=== PATIENT | female | born 1995 | race Caucasian/White ===

== ENCOUNTER → 2017-12-23 | Outpatient (CLI) | payer OTHER ==
[2017-12-23 11:06] LABS: HEMOGLOBIN 13.5 g/dl (12.0-15.5); MEAN CORPUSCULAR HGB CONC 33.8 g/dl (32.0-36.5); MEAN CORPUSCULAR VOLUME 88.9 fl (80.0-96.0); PLATELET COUNT, AUTOMATED 207 10^3/uL (150-450); RED CELL DISTRIBUTION WIDTH 12.8 % (11.5-14.5); WHITE BLOOD COUNT 7.1 10^3/uL (4.0-10.0)
[2017-12-23 11:31] LABS: ALBUMIN 3.3 GM/DL (3.2-5.2); ALBUMIN/GLOBULIN RATIO 0.94 (1.00-1.93); ALKALINE PHOSPHATASE 61 U/L (45-117); ALT/SGPT 27 U/L (12-78); ANION GAP 7 MEQ/L (8-16); AST/SGOT 17 U/L (7-37); BILIRUBIN,TOTAL 0.3 MG/DL (0.2-1.0); BLOOD UREA NITROGEN 13 MG/DL (7-18); CALCIUM LEVEL 8.4 MG/DL (8.5-10.1); CARBON DIOXIDE LEVEL 25 MEQ/L (21-32); CHLORIDE LEVEL 111 MEQ/L (98-107); CHOLESTEROL LEVEL 172 MG/DL (<200); CHOLESTEROL RISK RATIO 2.965 (<5); CREATININE FOR GFR 0.83 MG/DL (0.55-1.30); FERRITIN 81 NG/ML (8-252); GLUCOSE, FASTING 84 MG/DL (70-100); HDL CHOLESTEROL 58 MG/DL (>40); IRON (FE) 72 UG/DL (50-170); LDL CHOLESTEROL 88.4 MG/DL (<100); NON-HDL-C 114 MG/DL; PERCENT SATURATION 21.2 % (13.2-45.0); POTASSIUM SERUM 4.3 MEQ/L (3.5-5.1); SODIUM LEVEL 143 MEQ/L (136-145); TOTAL IRON BINDING CAPACITY 339 UG/DL (250-450); TOTAL PROTEIN 6.8 GM/DL (6.4-8.2); TRIGLYCERIDES LEVEL 128 MG/DL (<150)
[2017-12-23 11:33] LABS: ESTIMATED AVERAGE GLUCOSE 88 MG/DL (60-110); HEMOGLOBIN A1c 4.7 %
[2017-12-24 12:48] LABS: TOTAL 25(OH) VITAMIN D 42.8 NG/ML (30.0-100.0)
== END ==
LOC: M LAB 10:30
DX: D64.9 Anemia, unspecified (principal); E03.9 Hypothyroidism, unspecified; R53.83 Other fatigue
CPT/HCPCS: 83550

== ENCOUNTER → 2018-01-15 | Outpatient (REF) | payer OTHER ==
[2018-01-15 18:45] LABS: RHEUMATOID FACTOR QUANT < 10.0 IU/ML (<15.0)
[2018-01-15 18:45] LABS: C REACTIVE PROTEIN QUANTITATIV 2.62 MG/DL (0.00-0.30)
[2018-01-15 19:09] LABS: BASO % 0.5 % (0.0-1.0); EOS # 0.2 10^3/uL (0.0-0.50); EOS % 2.6 % (0.0-3.0); HEMATOCRIT 39.1 % (36.0-47.0); HEMOGLOBIN 13.4 g/dl (12.0-15.5); IMMATURE GRANULOCYTE % 0.2 % (0-3.0); LYMPH # 3.2 10^3/uL (1.5-6.5); LYMPH % 37.7 % (24.0-44.0); MEAN CORPUSCULAR HEMOGLOBIN 29.9 pg (27.0-33.0); MEAN CORPUSCULAR HGB CONC 34.3 g/dl (32.0-36.5); MEAN CORPUSCULAR VOLUME 87.3 fl (80.0-96.0); MONO # 0.6 10^3/uL (0.0-0.8); MONO % 6.5 % (0.0-5.0); NEUTROPHILS # 4.4 10^3/uL (1.8-7.7); NEUTROPHILS % 52.5 % (36.0-66.0); PLATELET COUNT, AUTOMATED 239 10^3/uL (150-450); RED BLOOD COUNT 4.48 10^6/uL (4.00-5.40); RED CELL DISTRIBUTION WIDTH 12.4 % (11.5-14.5); WHITE BLOOD COUNT 8.4 10^3/uL (4.0-10.0)
[2018-01-15 20:19] LABS: ERYTHROCYTE SEDIMENTATION RATE 18 mm/hr (0-20)
[2018-01-17 14:17] LABS: Lyme Disease IgG/IgM Antibodie <0.91 ISR (0.00-0.90); Lyme Disease IgM Ab Quantitati <0.80 index (0.00-0.79)
== END ==
LOC: M LABDRAW1 17:27
DX: M22.2X2 Patellofemoral disorders, left knee (principal)

== ENCOUNTER → 2018-01-30 | Outpatient (REF) | payer OTHER ==
[2018-01-30 18:36] LABS: C REACTIVE PROTEIN QUANTITATIV 0.82 MG/DL (0.00-0.30)
== END ==
LOC: M LABDRAW1 17:24
DX: M22.2X2 Patellofemoral disorders, left knee (principal)

== ENCOUNTER → 2018-06-06 | Outpatient (REF) | payer OTHER ==
[2018-06-06 11:15] LABS: BLOOD UREA NITROGEN 13 MG/DL (7-18); CALCIUM LEVEL 8.3 MG/DL (8.5-10.1); CARBON DIOXIDE LEVEL 26 MEQ/L (21-32); CHLORIDE LEVEL 105 MEQ/L (98-107); CREATININE FOR GFR 0.74 MG/DL (0.55-1.30); GLOMERULAR FILTRATION RATE > 60.0 (>60); GLUCOSE, FASTING 81 MG/DL (70-100); POTASSIUM SERUM 4.3 MEQ/L (3.5-5.1); SODIUM LEVEL 140 MEQ/L (136-145)
[2018-06-06 11:27] LABS: TOTAL 25(OH) VITAMIN D 53.5 NG/ML (30.0-100.0)
== END ==
LOC: M LABDRAW1 09:26
PROVIDERS: ATTEND Internal Medicine Endocrinology, Diabetes & Metabolism
DX: E55.9 Vitamin D deficiency, unspecified (principal); E28.2 Polycystic ovarian syndrome

== ENCOUNTER → 2018-07-29 | Outpatient (REF) | payer OTHER ==
[2018-07-29 21:33] LABS: AMORPHOUS SEDIMENT SMALL (NEGATIVE); APPEARANCE, URINE HAZY (CLEAR); BACTERIA, URINE AUTO 1+ (NEGATIVE); BILIRUBIN, URINE AUTO NEGATIVE (NEGATIVE); BLOOD, URINE BLOOD 1+ (NEGATIVE); COLOR, URINE YELLOW (YELLOW); GLUCOSE, URINE (UA) AUTO NEGATIVE (NEGATIVE); KETONE, URINE AUTO TRACE mg/dL (NEGATIVE); LEUKOCYTE ESTERASE, URINE AUTO 3+ (NEGATIVE); MUCUS, URINE SMALL (NEGATIVE); NITRITE, URINE AUTO NEGATIVE (NEGATIVE); PROTEIN, URINE AUTO 1+ mg/dL (NEGATIVE); RBC, URINE AUTO 6 /HPF (0-3); SPECIFIC GRAVITY URINE AUTO 1.024 (1.002-1.035); SQUAMOUS EPITHELIAL CELL UR AU 3 /HPF (0-6); UROBILINOGEN, URINE AUTO 0.2 mg/dL (0.0-2.0); WBC, URINE AUTO 28 /HPF (0-3)
== END ==
LOC: M LAB REF 14:31
PROVIDERS: ATTEND Physician Assistant Medical
DX: N39.0 Urinary tract infection, site not specified (principal)

== ENCOUNTER → 2018-12-27 | Outpatient (REF) | payer BC, OTHER ==
[2018-12-27 12:25] LABS: BLOOD UREA NITROGEN 11 MG/DL (7-18); CALCIUM LEVEL 8.6 MG/DL (8.5-10.1); CARBON DIOXIDE LEVEL 29 MEQ/L (21-32); CHLORIDE LEVEL 106 MEQ/L (98-107); CHOLESTEROL LEVEL 189 MG/DL (<200); CREATININE FOR GFR 0.73 MG/DL (0.55-1.30); GLOMERULAR FILTRATION RATE > 60.0 (>60); GLUCOSE, FASTING 81 MG/DL (70-100); HDL CHOLESTEROL 63 MG/DL (>40); POTASSIUM SERUM 4.2 MEQ/L (3.5-5.1); SODIUM LEVEL 142 MEQ/L (136-145); TRIGLYCERIDES LEVEL 100 MG/DL (<150)
[2018-12-27 12:26] LABS: LDL CHOLESTEROL 106 MG/DL (<100); NON-HDL-C 126 MG/DL
[2018-12-27 12:59] LABS: TESTOSTERONE 34 NG/DL (14-76)
[2018-12-27 13:18] LABS: TOTAL 25(OH) VITAMIN D 39.5 NG/ML (30.0-100.0)
== END ==
LOC: M LABDRAW1 09:10
PROVIDERS: ATTEND Nurse Practitioner Family
DX: E28.2 Polycystic ovarian syndrome (principal); E55.9 Vitamin D deficiency, unspecified

== ENCOUNTER → 2020-06-21 | Outpatient (CLI) | payer BC ==
[2020-06-21 11:53] LABS: BASO % 0.5 % (0.0-1.0); EOS # 0.2 10^3/uL (0.0-0.5); EOS % 2.3 % (0.0-3.0); HEMATOCRIT 43.9 % (36.0-47.0); HEMOGLOBIN 14.2 g/dl (12.0-15.5); LYMPH # 3.3 10^3/uL (1.5-5.0); LYMPH % 41.8 % (24.0-44.0); MEAN CORPUSCULAR HEMOGLOBIN 29.6 pg (27.0-33.0); MEAN CORPUSCULAR HGB CONC 32.3 g/dl (32.0-36.5); MEAN CORPUSCULAR VOLUME 91.6 fl (80.0-96.0); MONO # 0.6 10^3/uL (0.0-0.8); NEUTROPHILS # 3.8 10^3/uL (1.5-8.5); NEUTROPHILS % 48.1 % (36.0-66.0); PLATELET COUNT, AUTOMATED 258 10^3/uL (150-450); RED BLOOD COUNT 4.79 10^6/uL (4.00-5.40); WHITE BLOOD COUNT 7.9 10^3/uL (4.0-10.0)
[2020-06-21 13:02] LABS: ALT/SGPT 24 U/L (12-78); BILIRUBIN,TOTAL 0.4 MG/DL (0.2-1.0); BLOOD UREA NITROGEN 12 MG/DL (7-18); CARBON DIOXIDE LEVEL 27 MEQ/L (21-32); CHLORIDE LEVEL 106 MEQ/L (98-107); GLOMERULAR FILTRATION RATE > 60.0 (>60); GLUCOSE, FASTING 76 MG/DL (70-100); POTASSIUM SERUM 4.5 MEQ/L (3.5-5.1); SODIUM LEVEL 140 MEQ/L (136-145); TRIGLYCERIDES LEVEL 162 MG/DL (<150)
[2020-06-21 13:03] LABS: ALBUMIN 3.6 GM/DL (3.2-5.2); CHOLESTEROL LEVEL 202 MG/DL (<200); CHOLESTEROL RISK RATIO 3.311 (<5); FREE T4 1.04 NG/DL (0.76-1.46); HDL CHOLESTEROL 61 MG/DL (>40); LDL CHOLESTEROL 109 MG/DL (<100); NON-HDL-C 141 MG/DL; TOTAL 25(OH) VITAMIN D 57.8 NG/ML (30.0-100.0)
[2020-06-21 16:10] LABS: HEMOGLOBIN A1c 4.8 %
== END ==
LOC: M PLALAB 09:28
PROVIDERS: ATTEND Physician Assistant
DX: Z13.29 Encounter for screening for other suspected endocrine disorder (principal); Z13.220 Encounter for screening for lipoid disorders

== ENCOUNTER → 2020-12-07 | Outpatient (CLI) | payer OTHER ==
--- NOTE | 2020-12-07 19:23 | REP ---
INDICATION: LUMBAGO WITH SCIATICA, RIGHT SIDE COMPARISON: None. TECHNIQUE: AP and lateral views of the lumbosacral spine FINDINGS: AP view suggests very subtle levoconvex scoliosis through the lumbar spine. Alignment and lordosis otherwise maintained and normal. No acute fracture/compression injury or subluxation. No obvious degenerative changes. Evaluation of the L4-5 and L5-S1 levels is somewhat limited due to overlying soft tissue opacity. IMPRESSION: 1. Very subtle levoconvex scoliosis. <Electronically signed by Carlito Wright > 12/07/20 1549
--- NOTE | 2020-12-07 19:24 | REP ---
INDICATION: LUMBAGO WITH SCIATICA, RIGHT SIDE. COMPARISON: None. TECHNIQUE: AP, lateral, swimmer's views of the cervical spine. FINDINGS: Very subtle reversal of normal lordosis is nonspecific. Alignment is otherwise maintained. No acute fracture/compression injury or subluxation. No significant degenerative changes are appreciated. IMPRESSION: Essentially normal cervical spine radiographs. <Electronically signed by Carlito Wright > 12/07/201919
--- NOTE | 2020-12-07 20:29 | REP ---
INDICATION: LUMBAGO WITH SCIATICA, RIGHT SIDE COMPARISON: None. TECHNIQUE: AP and lateral views of the thoracic spine. FINDINGS: Alignment and kyphosis is maintained. Vertebral bodies intact. No acute fracture / compression injury or subluxation. No degenerative changes. Paravertebral soft tissues are normal. IMPRESSION: Normal thoracic spine series. <Electronically signed by Carlito Wright > 12/07/202025
== END ==
LOC: M LAB 18:39
PROVIDERS: ATTEND Chiropractor
DX: M54.41 Lumbago with sciatica, right side (principal); M99.03 Segmental and somatic dysfunction of lumbar region; M54.13 Radiculopathy, cervicothoracic region; M99.01 Segmental and somatic dysfunction of cervical region; M41.26 Other idiopathic scoliosis, lumbar region

== ENCOUNTER → 2021-01-11 | Outpatient (CLI) | payer OTHER | LOC: M PLALAB 08:26 | PROVIDERS: ATTEND Nurse Practitioner Family | DX: E28.2 Polycystic ovarian syndrome (principal) ==

== ENCOUNTER → 2021-01-11 | Outpatient (CLI) | payer OTHER ==
[2021-01-11 12:11] LABS: BASO # 0.1 10^3/uL (0.0-0.2); BASO % 0.7 % (0.0-1.0); EOS # 0.2 10^3/uL (0.0-0.5); EOS % 2.5 % (0.0-3.0); HEMATOCRIT 40.4 % (36.0-47.0); HEMOGLOBIN 13.4 g/dl (12.0-15.5); LYMPH % 42.1 % (24.0-44.0); MEAN CORPUSCULAR HEMOGLOBIN 30.1 pg (27.0-33.0); MEAN CORPUSCULAR HGB CONC 33.2 g/dl (32.0-36.5); MEAN CORPUSCULAR VOLUME 90.8 fl (80.0-96.0); MONO # 0.5 10^3/uL (0.0-0.8); MONO % 6.9 % (2.0-8.0); NEUTROPHILS # 3.4 10^3/uL (1.5-8.5); NEUTROPHILS % 47.5 % (36.0-66.0); PLATELET COUNT, AUTOMATED 217 10^3/uL (150-450); RED BLOOD COUNT 4.45 10^6/uL (4.00-5.40); WHITE BLOOD COUNT 7.2 10^3/uL (4.0-10.0)
[2021-01-11 12:51] LABS: ALBUMIN 3.4 GM/DL (3.2-5.2); ALT/SGPT 21 U/L (12-78); BILIRUBIN,TOTAL 0.4 MG/DL (0.2-1.0); BLOOD UREA NITROGEN 12 MG/DL (7-18); CALCIUM LEVEL 8.5 MG/DL (8.5-10.1); CARBON DIOXIDE LEVEL 29 MEQ/L (21-32); CHLORIDE LEVEL 107 MEQ/L (98-107); CHOLESTEROL LEVEL 192 MG/DL (<200); CHOLESTEROL RISK RATIO 2.823 (<5); CREATININE FOR GFR 0.75 MG/DL (0.55-1.30); GLOMERULAR FILTRATION RATE > 60.0 (>60); GLUCOSE, FASTING 81 MG/DL (70-100); HDL CHOLESTEROL 68 MG/DL (>40); LDL CHOLESTEROL 97 MG/DL (<100); NON-HDL-C 124 MG/DL; POTASSIUM SERUM 4.4 MEQ/L (3.5-5.1); SODIUM LEVEL 140 MEQ/L (136-145); TOTAL PROTEIN 6.7 GM/DL (6.4-8.2); TRIGLYCERIDES LEVEL 137 MG/DL (<150)
== END ==
LOC: M PLALAB 08:27
PROVIDERS: ATTEND Family Medicine
DX: I10 Essential (primary) hypertension (principal); E28.2 Polycystic ovarian syndrome

== ENCOUNTER → 2021-07-04 | Outpatient (CLI) | payer OTHER ==
[2021-07-04 17:41] LABS: BLOOD UREA NITROGEN 15 MG/DL (7-18); CARBON DIOXIDE LEVEL 29 MEQ/L (21-32); CHLORIDE LEVEL 106 MEQ/L (98-107); CREATININE FOR GFR 0.82 MG/DL (0.55-1.30); GLOMERULAR FILTRATION RATE > 60.0 (>60); GLUCOSE, FASTING 102 MG/DL (70-100); POTASSIUM SERUM 4.3 MEQ/L (3.5-5.1); SODIUM LEVEL 140 MEQ/L (136-145)
[2021-07-04 17:51] LABS: TOTAL 25(OH) VITAMIN D 59.7 NG/ML (30.0-100.0)
== END ==
LOC: M PLALAB 15:07
PROVIDERS: ATTEND Nurse Practitioner Family
DX: E55.9 Vitamin D deficiency, unspecified (principal)

== ENCOUNTER → 2021-07-04 | Outpatient (CLI) | payer OTHER ==
[2021-07-04 17:30] LABS: HEMOGLOBIN A1c 4.9 %
[2021-07-04 17:52] LABS: ALBUMIN 3.3 GM/DL (3.2-5.2); ALT/SGPT 23 U/L (12-78); BILIRUBIN,TOTAL 0.1 MG/DL (0.2-1.0); BLOOD UREA NITROGEN 15 MG/DL (7-18); CALCIUM LEVEL 8.9 MG/DL (8.5-10.1); CARBON DIOXIDE LEVEL 29 MEQ/L (21-32); CHLORIDE LEVEL 107 MEQ/L (98-107); CREATININE FOR GFR 0.79 MG/DL (0.55-1.30); FREE T4 0.96 NG/DL (0.76-1.46); GLOMERULAR FILTRATION RATE > 60.0 (>60); GLUCOSE, FASTING 101 MG/DL (70-100); POTASSIUM SERUM 4.3 MEQ/L (3.5-5.1); SODIUM LEVEL 140 MEQ/L (136-145)
== END ==
LOC: M PLALAB 15:05
PROVIDERS: ATTEND Family Medicine
DX: R63.5 Abnormal weight gain (principal)

== ENCOUNTER → 2021-08-17 | Outpatient (CLI) | payer OTHER | LOC: M RAD 14:08 | PROVIDERS: ATTEND Chiropractor | DX: M51.36 Other intervertebral disc degeneration, lumbar region (principal); M99.03 Segmental and somatic dysfunction of lumbar region; M99.01 Segmental and somatic dysfunction of cervical region; M54.13 Radiculopathy, cervicothoracic region ==

== ENCOUNTER → 2021-10-11 | Outpatient (CLI) | payer OTHER | LOC: M WHC 08:29 | PROVIDERS: ATTEND Family Medicine | DX: R10.11 Right upper quadrant pain (principal) ==

== ENCOUNTER → 2022-01-17 | Outpatient (CLI) | payer OTHER ==
[2022-01-17 14:15] LABS: BLOOD UREA NITROGEN 14 MG/DL (7-18); CALCIUM LEVEL 8.7 MG/DL (8.5-10.1); CARBON DIOXIDE LEVEL 25 MEQ/L (21-32); CHLORIDE LEVEL 106 MEQ/L (98-107); CREATININE FOR GFR 0.81 MG/DL (0.55-1.30); GLOMERULAR FILTRATION RATE > 60.0 (>60); GLUCOSE, FASTING 75 MG/DL (70-100); POTASSIUM SERUM 4.5 MEQ/L (3.5-5.1); SODIUM LEVEL 139 MEQ/L (136-145)
[2022-01-17 14:44] LABS: TESTOSTERONE 19 NG/DL (14-76)
== END ==
LOC: M PLALAB 09:59
PROVIDERS: ATTEND Internal Medicine Endocrinology, Diabetes & Metabolism
DX: E28.2 Polycystic ovarian syndrome (principal)

== ENCOUNTER → 2022-08-19 | Outpatient (CLI) | payer OTHER ==
[2022-08-19 10:10] LABS: HEMOGLOBIN A1c 5.1 % (4.0-6.0)
[2022-08-19 10:26] LABS: ALBUMIN 3.3 G/DL (3.2-5.2); ALKALINE PHOSPHATASE 54 U/L (46-116); ALT/SGPT 19 U/L (7.0-40); AST/SGOT 17 U/L (<34); BILIRUBIN,TOTAL 0.5 MG/DL (0.3-1.2); BLOOD UREA NITROGEN 18 MG/DL (9-23); CALCIUM LEVEL 8.8 MG/DL (8.5-10.1); CARBON DIOXIDE LEVEL 28 MMOL/L (20-31); CHLORIDE LEVEL 106 MMOL/L (98-107); CHOLESTEROL LEVEL 157 MG/DL (<200); CHOLESTEROL RISK RATIO 2.71 (<5); CREATININE FOR GFR 0.84 MG/DL (0.55-1.30); GLOMERULAR FILTRATION RATE > 60.0 (>60); GLUCOSE, FASTING 81 MG/DL (60-100); HDL CHOLESTEROL 57.9 MG/DL (>40); LDL CHOLESTEROL 74.9 MG/DL (<100); NON-HDL-C 99.1 MG/DL; POTASSIUM SERUM 4.4 MMOL/L (3.5-5.1); SODIUM LEVEL 139 MMOL/L (136-145); TESTOSTERONE 24 NG/DL (14-76); TOTAL 25(OH) VITAMIN D 64.4 NG/ML (20.0-100.0); TOTAL PROTEIN 6.5 G/DL (5.7-8.2); TRIGLYCERIDES LEVEL 121 MG/DL (<150)
== END ==
LOC: M LAB 09:21
PROVIDERS: ATTEND Nurse Practitioner Family
DX: E28.2 Polycystic ovarian syndrome (principal); E55.9 Vitamin D deficiency, unspecified

== ENCOUNTER → 2023-02-27 | Outpatient (CLI) | payer OTHER | LOC: M RAD 15:58 | PROVIDERS: ATTEND Nurse Practitioner Adult Health | DX: D48.7 Neoplasm of uncertain behavior of other specified sites (principal) ==

== ENCOUNTER 2023-04-02 11:45 | Emergency (ER) | payer OTHER ==
[~2023-04-02] VITALS: Ht 172.7 cm; Wt 114.9 kg
[2023-04-02 14:56] VITALS: BP 142/83; TEMP 96.2; O2SAT 96
== END 2023-04-02 14:58 | disposition home or self-care (01) ==
LOC: M ED 11:45
DX: M76.62 Achilles tendinitis, left leg (principal); I10 Essential (primary) hypertension; E28.2 Polycystic ovarian syndrome

== ENCOUNTER → 2024-02-01 | Outpatient (CLI) | payer BC ==
[2024-02-01 11:40] LABS: ALBUMIN 3.3 G/DL (3.2-5.2); ALKALINE PHOSPHATASE 51 U/L (46-116); ALT/SGPT 18 U/L (7.0-40); AST/SGOT 13 U/L (<34); BILIRUBIN,TOTAL 0.5 MG/DL (0.3-1.2); BLOOD UREA NITROGEN 10 MG/DL (9-23); CALCIUM LEVEL 8.9 MG/DL (8.5-10.1); CARBON DIOXIDE LEVEL 27 MMOL/L (20-31); CHLORIDE LEVEL 106 MMOL/L (98-107); CHOLESTEROL LEVEL 180 MG/DL (<200); CHOLESTEROL RISK RATIO 2.85 (<5); CREATININE FOR GFR 0.75 MG/DL (0.55-1.30); GLOMERULAR FILTRATION RATE > 60.0 (>60); GLUCOSE, FASTING 79 MG/DL (60-100); LDL CHOLESTEROL 79.4 MG/DL (<100); POTASSIUM SERUM 4.2 MMOL/L (3.5-5.1); SODIUM LEVEL 137 MMOL/L (136-145); TOTAL PROTEIN 6.9 G/DL (5.7-8.2); TRIGLYCERIDES LEVEL 188 MG/DL (<150)
[2024-02-01 11:43] LABS: TOTAL 25(OH) VITAMIN D 46.8 NG/ML (20.0-100.0)
[2024-02-01 11:44] LABS: TESTOSTERONE 30 NG/DL (14-76)
== END ==
LOC: M LAB 10:21
PROVIDERS: ATTEND Nurse Practitioner Family
DX: E28.2 Polycystic ovarian syndrome (principal); E55.9 Vitamin D deficiency, unspecified

== ENCOUNTER → 2024-08-17 | Outpatient (CLI) | payer BC ==
[2024-08-17 08:41] LABS: BASO # 0.1 10^3/uL (0.0-0.2); BASO % 0.6 % (0.0-1.0); EOS # 0.2 10^3/uL (0.0-0.5); EOS % 2.7 % (0.0-3.0); HEMATOCRIT 41.2 % (36.0-47.0); HEMOGLOBIN 13.9 g/dl (12.0-15.5); LYMPH # 3.8 10^3/uL (1.5-5.0); LYMPH % 42.6 % (24.0-44.0); MEAN CORPUSCULAR HEMOGLOBIN 30.2 pg (27.0-33.0); MEAN CORPUSCULAR HGB CONC 33.7 g/dl (32.0-36.5); MEAN CORPUSCULAR VOLUME 89.6 fl (80.0-96.0); MONO # 0.6 10^3/uL (0.0-0.8); MONO % 6.1 % (2.0-8.0); NEUTROPHILS # 4.3 10^3/uL (1.5-8.5); NEUTROPHILS % 47.8 % (36.0-66.0); PLATELET COUNT, AUTOMATED 223 10^3/uL (150-450)
[2024-08-17 09:04] LABS: ALBUMIN 3.2 G/DL (3.2-5.2); ALKALINE PHOSPHATASE 45 U/L (35-104); ALT/SGPT 15 U/L (7.0-40); AST/SGOT 18 U/L (<34); BILIRUBIN,TOTAL 0.4 MG/DL (0.3-1.2); BLOOD UREA NITROGEN 16 MG/DL (9-23); CARBON DIOXIDE LEVEL 25 MMOL/L (20-31); CHLORIDE LEVEL 107 MMOL/L (98-107); CHOLESTEROL LEVEL 193 MG/DL (<200); CHOLESTEROL RISK RATIO 3.09 (<5); CREATININE FOR GFR 0.87 MG/DL (0.55-1.30); GLOMERULAR FILTRATION RATE > 60.0 (>60); GLUCOSE, FASTING 82 MG/DL (60-100); HDL CHOLESTEROL 62.3 MG/DL (>40); LDL CHOLESTEROL 89.7 MG/DL (<100); NON-HDL-C 130.7 MG/DL; POTASSIUM SERUM 4.1 MMOL/L (3.5-5.1); SODIUM LEVEL 140 MMOL/L (136-145); TOTAL PROTEIN 6.8 G/DL (5.7-8.2); TRIGLYCERIDES LEVEL 205 MG/DL (<150)
[2024-08-17 09:06] LABS: THYROID STIMULATING HORMONE 7.626 uIU/ML (0.55-4.78)
[2024-08-17 09:19] LABS: HEMOGLOBIN A1c 4.8 % (4.0-6.0)
[2024-08-19 13:52] LABS: INSULIN TOTAL2 14.9 uIU/mL (<=18.4)
== END ==
LOC: M LAB 08:04
PROVIDERS: ATTEND Nurse Practitioner Adult Health
DX: I10 Essential (primary) hypertension (principal)

== ENCOUNTER → 2025-02-20 | Outpatient (REF) | payer BC | LOC: M LAB REF 16:58 | PROVIDERS: ATTEND Physician Assistant | DX: N89.8 Other specified noninflammatory disorders of vagina (principal) ==

== ENCOUNTER → 2025-02-20 | Outpatient (CLI) | payer BC ==
[2025-02-20 13:20] LABS: FREE T4 1.19 NG/DL (0.89-1.76)
[2025-02-20 13:58] LABS: TOTAL T3 155.6 NG/DL (60.0-181.0)
[2025-02-20 13:59] LABS: THYROID PEROXIDASE ANTIBODY 409.0 U/ML (<60.0)
[2025-02-20 14:00] LABS: THYROGLOBULIN ANTIBODY 20.0 U/ML (<60.0)
== END ==
LOC: M LAB 11:59
PROVIDERS: ATTEND Nurse Practitioner Adult Health
DX: R94.6 Abnormal results of thyroid function studies (principal)